=== PATIENT | male | born 1950 | race Caucasian/White ===

== ENCOUNTER 2016-07-19 18:49 | Emergency (ER) | payer MEDICARE ==
[~2016-07-19] VITALS: Ht 170.2 cm; Wt 88.0 kg
[2016-07-19 19:27] LABS: BLOOD UREA NITROGEN 20 mg/dL (7-18)
[2016-07-19 20:44] LABS: PATH.CAST-FLAG NOT PRESENT; SPERM-FLAG NOT PRESENT; SRC-FLAG NOT PRESENT; XTAL-FLAG NOT PRESENT; YLC-FLAG NOT PRESENT
[2016-07-19 21:23] VITALS: BP 152/88
== END 2016-07-19 21:26 | disposition home or self-care (01) ==
LOC: ED 20:10
DX: N45.1 Epididymitis (principal); I86.1 Scrotal varices; N43.40 Spermatocele of epididymis, unspecified; Z98.52 Vasectomy status
CPT/HCPCS: 36415; 76870; 80048; 81001; 82040; 85025